=== PATIENT | male | born 1985 | race American Indian/Alaskan Native ===

== ENCOUNTER 2021-04-16 22:51 | Emergency (ER) | payer MEDICARE ==
[2021-04-16 23:28] VITALS: BP 113/81
--- NOTE | 2021-04-17 00:35 | Event Note ---
ED Screening Note Date of service: 04/17/21 Time: 00:33 ED Screening Note: Patient is a 36-year-old -[place] male with a history of myasthenia gravis who presents to the ED with complaint of acute onset persistent intractable nausea and vomiting, abdominal pain, diffuse body aches and pains, persistent dry cough, headache, and generalized weakness for the last 1 week, worse in the last 2 days. Patient states that he usually gets IV infusion medications for myasthenia gravis if his symptoms get worse. Patient states that he was expecting to do home infusions but has just been kicked out of the house by his girlfriend about 1 hour ago despite his symptoms get worse. Patient denies dizziness, syncope, diarrhea, chest pain, shortness of breath, fever, chills, seizures, change in vision, palpitations or hematemesis. This initial assessment/diagnostic orders/clinical plan/treatment(s) is/are subject to change based on patients health status, clinical progression and re- assessment by fellow clinical providers in the ED. Further treatment and workup at subsequent clinical providers discretion. Patient/guardian urged not to elope from the ED as their condition may be serious if not clinically assessed and managed. Initial orders include: CBC, CMP, UA
[2021-04-17 02:34] LABS: Basophils % (Auto) 0.4 % (0.0-1.8); Eosinophils % (Auto) 0.1 % (0.0-4.3); Hematocrit 44.5 % (35.5-45.6); Hemoglobin 15.2 gm/dl (11.8-15.2); Lymphocytes # (Auto) 0.4 K/mm3 (1.2-5.4); Lymphocytes % (Auto) 11.1 % (13.4-35.0); Mean Corpuscular HGB Conc 34 % (32-34); Mean Corpuscular Volume 89 fl (84-94); Monocytes # (Auto) 0.3 K/mm3 (0.0-0.8); Monocytes % (Auto) 8.8 % (0.0-7.3); Platelet Count 240 K/mm3 (140-440); Red Blood Count 5.02 M/mm3 (3.65-5.03); Red Cell Distribution Width 13.9 % (13.2-15.2)
[2021-04-17 02:59] LABS: Alanine Aminotransferase 18 units/L (7-56); Albumin 4.4 g/dL (3.9-5); BUN/Creatinine Ratio 14; Blood Urea Nitrogen 14 mg/dL (9-20); Calcium 9.1 mg/dL (8.4-10.2); Hemolysis Index 10
== END 2021-04-17 10:00 | disposition left against medical advice (07) ==
LOC: ED 22:51
DX: R53.1 Weakness (principal); Z53.21 Procedure and treatment not carried out due to patient leaving prior to being seen by health care provider
CPT/HCPCS: 36415; 80053; 85025

== ENCOUNTER 2021-04-21 17:15 | Emergency (ER) | payer MEDICARE ==
[2021-04-21 17:38] VITALS: BP 127/89
== END 2021-04-21 17:37 | disposition left against medical advice (07) ==
LOC: ED 17:15
DX: R42 Dizziness and giddiness (principal); R53.1 Weakness; Z53.21 Procedure and treatment not carried out due to patient leaving prior to being seen by health care provider

== ENCOUNTER 2021-09-29 23:54 | Emergency (ER) | payer MEDICARE ==
[2021-09-29 23:58] VITALS: BP 143/90
--- NOTE | 2021-09-30 00:15 | Emergency Department Report ---
Chief Complaint: Medical Clearance Stated Complaint: MUSCLE WEAKNESS Time Seen by Provider: 09/30/21 00:06 - HPI History of Present Illness: Patient is a 36-year-old [place] male who is currently homeless who states he wants to be transferred from our hospital to [place] to get an infusion for his myasthenia gravis. According to the patient and at least one note in the past the patient has a remote history of myasthenia gravis. Patient states he has been trying to get to [place] for the last 2 months. Patient is not endorsing any weakness of his eyelids or any inability to walk. Patient was brought in by police for loitering in disturbing behavior. Patient is not endorsing any homicidal suicidal ideations at this time. Patient is adamant that he we need to transfer port him to [place] so he can get further care. - ROS Review of Systems: All systems are negative except for those in HPI - Exam Vital Signs: Vital Signs 09/29/21 23:57 Temperature 98.9 F Pulse Rate 73 Respiratory 16 Rate Blood Pressure 143/90 O2 Sat by Pulse 97 Oximetry Physical Exam: Patient talking loudly with pressured speech. Patient is speaking to us and on the phone constantly. Eyes extraocular movements are intact patient's eyelids opening closing within normal limits. No facial droop. Patient is lung exam no respiratory distress. Cardiac exam patient is regular rate and rhythm. Abdomen is nondistended. Neurologically the patient is moving all extremities with normal strength. MSE screening note: Focused history and physical exam performed. Due to findings the following was ordered: ED Medical Decision Making - Medical Decision Making Patient is a 36-year-old gentleman who is brought in by police. Patient states he wants to be transferred to [place] so he can get an infusion for myasthenia gravis. Patient does not appear to be in any crisis at this time. He is breathing within normal limits moving all extremities with normal strength has no facial weakness. Patient is speaking constantly while here. Patient has no acute emergent condition. Do believe the patient likely has some mental health issues and is also here for secondary gain secondary to his homelessness. Patient is stable for discharge ED Disposition for MSE Clinical Impression: Homeless Is pt being admited?: No Does the pt Need Aspirin: No Condition: Stable Time of Disposition: 00:14
== END 2021-09-30 00:30 | disposition home or self-care (01) ==
LOC: ED 23:54
DX: M62.81 Muscle weakness (generalized) (principal); Z59.00 Homelessness unspecified
CPT/HCPCS: 99282